=== PATIENT | female | born 2000 | race Two or more races ===

== ENCOUNTER 2021-01-13 14:00 | Emergency (ER) | payer BC ==
[~2021-01-13] VITALS: Ht 157.5 cm; Wt 63.5 kg
[2021-01-13] MEDS ORDERED: DICLOFENAC POTA50 MG PO (16:23)
== END 2021-01-13 17:08 | disposition home or self-care (01) ==
LOC: ER 14:00
DX: G89.11 Acute pain due to trauma (principal); M25.572 Pain in left ankle and joints of left foot

== ENCOUNTER 2021-02-15 12:04 | Emergency (ER) | payer BC ==
[~2021-02-15] VITALS: Ht 165.1 cm; Wt 59.0 kg
[~2021-02-15 12:04] MED LIST: DICLOFENAC POTA50 MG PO
== END 2021-02-15 17:21 | disposition home or self-care (01) ==
LOC: ER 12:04
DX: S30.814A Abrasion of vagina and vulva, initial encounter (principal); W26.8XXA Contact with other sharp object(s), not elsewhere classified, initial encounter; Y93.E8 Activity, other personal hygiene; Y92.89 Other specified places as the place of occurrence of the external cause; Y99.8 Other external cause status; Z20.822 Contact with and (suspected) exposure to COVID-19